=== PATIENT | female | born 1960 | race Caucasian/White ===

== ENCOUNTER 2017-06-24 11:55 | Inpatient (IN) | payer OTHER ==
[~2017-06-24] VITALS: Ht 170.2 cm; Wt 119.5 kg
[~2017-06-24 11:55] MED LIST: COREG25 MG PO; COZAAR50 MG PO; FLONASE ALLERG9.9 ML NS; FUROSEMIDE40 MG PO; GLUCOPHAGE XR500 MG PO; HUMULIN N100 UNIT/1 SUB-Q; NEURONTIN300 MG PO; NOVOLIN 70100 UNITS/ SUB-Q; POTASSIUM CHLO20 ME1 PO
[2017-06-24] MEDS ORDERED: PRAVACHOL40 MG PO (12:35)
[2017-06-24] MEDS ORDERED: ST. JOSEPH ASPI81 M1 PO (12:36)
[2017-06-24] MEDS ORDERED: ZYLOPRIM100 MG PO (12:36)
[2017-06-24] MEDS ORDERED: HUMALOG KW200 UNIT/1 SUB-Q (12:36)
[2017-06-24] MEDS ORDERED: VICTOZA 2-0.6 MG/0.1 SUB-Q (12:37)
[2017-06-24] MEDS ORDERED: TRESIBA FL100 UNIT/1 SUB-Q (12:37)
--- NOTE | 2017-06-24 17:10 | NUR ---
Medications reconciled using medication vials and interview
--- NOTE | 2017-06-24 17:46 | NUR ---
WENT IN ROOM TO GET PT UP TO THE COMMODE TO TRY AND SEE IF SHE COULD VOID. PT WAS UNABLE TP DUE TO BECOMING NAEUSEOUS AND BEGAN VOMITING. NURSE AWARE.
--- NOTE | 2017-06-24 18:32 | NUR ---
pt is sitting up in bed with call light in reach. pt says she is not as nauseous. pt says she still does not feel she needs to void
--- NOTE | 2017-06-24 18:37 | NUR ---
DR LEIVA TO SEE PT. ZOFRAN X1 FOR NAUSEA. NOTHING TO EAT SINCE YESTERDAY. CT POSITIVE FOR CHOLECYSTITIS. NPO NOW. ZOSYN GIVEN. DUE TO VOID.
--- NOTE | 2017-06-24 20:13 | NUR ---
coop with assessment, drowsy, no c/o pain, in room, first liter of 2liter ivf infusing
--- NOTE | 2017-06-25 03:44 | NUR ---
pt resting peacefully, no further c/o pain, continous pulse ox in place, IVF infusing. Pt aware that a UA is needed. Pt NPO for possible am surgery today. scds in place
--- NOTE | 2017-06-25 04:19 | NUR ---
PT UP TO BSC, VIDED 450CC, DARK YELLOW URINE, BACK TO BED, WITH ASSIST. C/O BACK AND ABD PAIN, MEDICATED WITH DILAUID 0.5MG IV
--- NOTE | 2017-06-25 06:00 | NUR ---
NURSE NOTIFIED RE SAMMYP.
--- NOTE | 2017-06-25 06:27 | NUR ---
Pt continues to c/o abd pain, medicated 2x with dilaudid with good pain relief, dry heaving x1,and 10cc clear phlegm. medicated with zofran, effective. No further episodes. IVF infusing w/o problems. Up to bsc with one assist, slight lower legs weakness present, CBG 234 ar 2200 received 6 units insulin plus Levemir. No c/o adverse reaction to IV abx. NPO for possible am surgery today. oral care done by self. Temp 99.6, IS at bedside, encouraged to CDB.
--- NOTE | 2017-06-25 07:00 | NUR ---
BEDSIDE HANDOFF REPORT RECEIVED FROM MEDICAL COST CONSULTANT RN. PT SLEEPING, AT BEDSIDE.
--- NOTE | 2017-06-25 08:00 | NUR ---
PT RESTING IN BED. PT ALERT/ORIENTED. FLUIDS INFUSING AT 125 ML/HR. PT NPO FOR POSSIBLE PROCEDURE. PT BLOOD GLUCOSE 328, GIVEN 12 UNITS OF SS NOVOLOG AND 18 UNITS LEVEMIR. PT LUNG SOUNDS CLEAR, ON ROOM AIR. PT WITH BLE NEUROPATHY, NUMBNESS AT BASELINE, PULSES PALPABLE, NO EDEMA NOTED. PT DENIES NEEDS AT THIS TIME. AT BEDSIDE.
--- NOTE | 2017-06-25 08:26 | NUR ---
PT REQUESTING NAUSEA MEDICATION, GIVEN 4 MG IV ZOFRAN. PT DENIES OTHER NEEDS AT THIS TIME.
--- NOTE | 2017-06-25 08:56 | NUR ---
PT REQUESTING PAIN MEDICATION. GIVEN 0.5 MG IV DILAUDID. PT DENIES OTHER NEEDS AT THIS TIME.
--- NOTE | 2017-06-25 09:45 | NUR ---
Patient is resting in bed right now. Patient states "I would like to get some rest right now." Dr. Jaquez in to see patient at this time.
--- NOTE | 2017-06-25 11:30 | NUR ---
PT RESTING IN BED. PT ON ROOM AIR, O2 SATS 94%, LUNG SOUNDS CLEAR. PT TOLERATING CLEAR LIQUID DIET, DISCUSSED BLOOD SUGAR CONTROL ON CLEAR LIQUIDS. PT DENIES NAUSEA AT THIS TIME. PT BOWEL TONES COTNINUE TO BE HYPOACTIVE. PT WITHOUT EDEMA, PULSES PALPABLE. PT DENIES NEEDS AT THIS TIME.
--- NOTE | 2017-06-25 12:45 | NUR ---
PT RESTING COMFORTABLY IN BED. O2 SATS 92% ON ROOM AIR, RR 24. PT LEFT UNDISTURBED.
--- NOTE | 2017-06-25 14:30 | NUR ---
PT ASSISTED TO BEDSIDE COMMODE TO URINATE. PT SOB WITH ACTIVITY. IV ANCEF INFUSING. MD NOTIFIED OF SOB WITH ACTIVITY, MD TO EVALUATE PT FOR POTENTIAL FLUID OVERLOAD.IV FLUIDS DECREASED TO 75 ML/HR.
--- NOTE | 2017-06-25 16:00 | NUR ---
PT ON ROOM AIR, O2 SATS 94%, PT WITH SOB WITH ACTIVITY. PT RATNG PAIN 2/10 TO ABD, BOWL TONES ACTIVE, DENIES NAUSEA, TOLERATING CLEAR LIQUID DIET. IV FLUIDS INFUSING D5LR AT 125 ML/HR. PT DENIES NEEDS AT THIS TIME.
--- NOTE | 2017-06-25 16:15 | NUR ---
DR. LEIVA NOTIFIED OF PT FEVER. ORDER TO CHANGE PT FROM ANCEF TO ZOSYN 3.375 GM AND TO ADD TYLENOL PO 650 MG Q6H, RBOV.
--- NOTE | 2017-06-25 18:42 | NUR ---
PT ON ROOM AIR, O2 SATS >92%, CONTNINUOUS PULSE OX. PT ALLOWED TO HAVE CLEAR LIQUID DIET, WILL BE NPO AT MIDNIGHT. PT WITH FEVER, MAX TEMP 102.8, GIVEN TYLENOL, ABX CHANGED. PAIN WELL CONTROLLED WITH 0.5 MG IV DILAUDID. PT SBA TO BSC, VOIDING MARGINAL AMOUNTS.
--- NOTE | 2017-06-25 19:26 | NUR ---
SIGNED CONSENT IN CHART. BEDSIDE REPORT GIVEN. PT DENIES NEEDS AT THIS TIME.
--- NOTE | 2017-06-25 20:00 | NUR ---
RECEIVED REPORT AT 1900. FOUND PT IN BED WATCHING TV. PT DENIED PAIN. NO CONCERNS AT THIS TIME.
--- NOTE | 2017-06-25 20:37 | NUR ---
Patient in bed, whiteboard updated, room tidied. Patient reminded to call if they need anything.
--- NOTE | 2017-06-25 22:00 | NUR ---
TEMP IS 100.2, PRN TYLENOL WILL BE GIVEN. ALL OTHER V/S ARE CLEAR, ALL QUADRANTS HAVE HYPOACTIVE BOWEL TONES, ABD IS MILDLY DISTENDED, TENDER TO TOUCH AND FRIM ALL LOBES ARE CLEAR AT THIS TIME., BG WAS 221,PT RECEIVED 6 UNITS OF NOVOLOG AND 36 UNITS OF SCHEDULED LEVEMIR INSULIN.
--- NOTE | 2017-06-26 00:15 | NUR ---
PT IS SLEEPING AT THIS TIME.
--- NOTE | 2017-06-26 00:18 | NUR ---
PATIENT IN BED, NURSE IN ROOM
--- NOTE | 2017-06-26 01:30 | NUR ---
SBP WAS ONLY 86. MD LEIVA TO BE CALLED.
--- NOTE | 2017-06-26 01:40 | NUR ---
MD LEIVA CALLED. GOT ORDERS TO CHECK HER BG (IT WAS 216), THOMAS WAS ALSO ORDERED (INSERTED AT 0200), URINE OUTPUT WAS ONLY 125ML. MD LEIVA SAID TO GIVE HER A 500ML LR BOLUS IF URINE OUTPUT WAS NOT SUFFICIENT, WHICH IT IS NOT. ORDER FOR A 500ML LR BOLUS WILL BE PUT IN AND GIVEN AND THEN BP RETAKEN.
--- NOTE | 2017-06-26 03:41 | NUR ---
BOLUS FINISHED, SBP IS 88, MD LEIVA WAS CALLED. RECEIVED ORDER FOR ANOTHER 500ML LR BOLUS AND CHEM 2 WITH LACTIC ACID LABS NOW. PT STATED THAT SHE FEELS FINE. WILL CALL MD LEIVA FOR REMARKED CHANGEDS AFTER SECOND BOLUS IS DONE. NO MORE URINE OUTPUT SO FAR, TEMP IS 99.6. MD LEIVA IS AWARE OF THAT WELL.
--- NOTE | 2017-06-26 05:53 | NUR ---
SECOND BOLUS WAS DONE AT 0517. SBP WAS 90, URINE OUTPUT SINCE 0200 WAS 50ML, ABD IS VERY DISTENDED AND PT IS MORE PAINFUL. I AM HOLDING PAIN MEDS BECAUSE PT IS STILL HARD TO AROUSE AT TIMES. ALBUMEN IS LOW, CREATENIN HIS HIGH. MD SALES WAS CALLED AND IS AWARE. HE ORDERED ANOTHER LR 500ML BOLUS.
--- NOTE | 2017-06-26 06:42 | NUR ---
PT IS HARD TO AROUSE. PT IS ALERT X4 BUT NOT REALLY ABLE TO STAY AWAKE. WILL CALL MD LEIVA AGAIN.
--- NOTE | 2017-06-26 06:55 | NUR ---
CALLED MD LEIVA AGAIN DUE TO EDEMA AND DIFFICULTY TO AROUSE PT. IV FLUIDS ARE DECREASED TO 85ML/HR, ONE TIME DOSE OF IV LASIX 20MG WAS ALSO ORDERED.
--- NOTE | 2017-06-26 07:00 | NUR ---
BEDSIDE HANDOFF REPORT RECEIVED FROM CHILD CARE WORKER RN. PT SLEEPING IN BED. THOMAS CATH IN PLACE DRAINING FREELY. IV FLUIDS INFUSING AT 85 ML/HR. AT BEDSIDE.
--- NOTE | 2017-06-26 07:40 | NUR ---
PT HYPOTENSIVE OVER NIGHT, HR IN THE 80-90'S, PT TO RECEIVE COREG. OR CHARGE NURSE CALLED, TO SPEAK WITH ANESTHESIA AND WILL CALL BACK WITH ORDER REGARDING COREG.
--- NOTE | 2017-06-26 08:00 | NUR ---
SPOKE WITH DOCTOR SPEARS REGARDING PATIENT'S LOW URINE OUTPUT THROUGH THE NIGHT AND LOW BLOOD PRESSURES. DOCTOR UPDATED ON 500ML BOLUS X3 AND THAT HER URINE OUTPUT REMAINED LOW WITH BOLUS GIVEN. ABDOMEN AND LEGS HAVE GENRALIZED EDEMA, LASIX ORDERED AND GIVEN THIS AM.
--- NOTE | 2017-06-26 08:00 | NUR ---
PT RESTING COMFORTABLY IN BED. PT STATES PAIN 2/10 AT REST, DENIES NEED FOR PAIN MEDICATION. PT ON ROOM AIR, O2 SATS 93%, LUNG SOUNDS CLEAR. PT BOWEL TONES ACTIVE, DENIES NAUSEA, ABD DISTENDED. PT WITH THOMAS CATH IN PLACE, DRAINING FREELY, PT WITH LOW URINE OUTPUT, MD AWARE, RECENTLY RECEIVED IV LASIX, WILL CONTINUE TO MONITOR. IV ZOSYN INFUSING. PT DENIES OTHER NEEDS AT THIS TIME.
--- NOTE | 2017-06-26 08:20 | NUR ---
RECEIVED CALL BACK FROM STEFANI VALENCIA RN. ANESTHESIAORDER TO HOLD COREG THIS AM.
--- NOTE | 2017-06-26 08:53 | NUR ---
PT AWAKE IN BED. DID SURG. WIPE DOWN. EMPTYED GARBAGE. PICKED UP ROOM. AM CARE.
--- NOTE | 2017-06-26 09:45 | NUR ---
PT RESTING COMFORTABLY IN BED. O2 SAT S93% ON ROOM AIR. PER MD REQUEST URINARY COLLECTION DEVICE CHANGED TO UROMETER BAG. IV LR BOLUS INFUSING. PT WITH LOW URINE OUTPUT, MD AWARE. PT DENIES OTHER NEEDS AT THIS TIME.
--- NOTE | 2017-06-26 10:06 | NUR ---
PT SLEEPING IN BED. HELPED NURSE VERONA CHANGE CATH BAG.
--- NOTE | 2017-06-26 10:53 | NUR ---
PT TO OR WITH VIDAL KO. PT SENT WITH ZOSYN, D5LR AND, LR BOLUS INFUSING. WITH PT.
--- NOTE | 2017-06-26 15:03 | NUR ---
06/26/17 Teresa Baron 1445: PT ARRIVED TO CCU AND VENT WAS SET UP, SEE RT NOTES FOR SETTINGS. RESTRAINS PLACED.
--- NOTE | 2017-06-26 15:56 | NUR ---
RECEIVED PT FROM PACU NURSE FACE TO FACE REPORT. ALL QUESTIONS ANSWERED AT THIS TIME. PT REMAIN ON VENT SEE VENT SETTING IN RT NOTES. PT HAS A RASS -3 AT THIS TIME WITHOUT SEDATION RUNNING AT THIS TIME. GUEVARA DRAINING SS FLUID AT THIS TIME, THOMAS DRAINING JESSICA IN COLOR URINE, UMBILLIC DRESSING HAS MOIDERATE DRAINAGE AT THIS TIME, DR LEIVA IS AWARE AND NO NEW ORDERS WITH THIS. SCD'S AND RESTRAINTS IN PLACE.
--- NOTE | 2017-06-26 16:48 | NUR ---
INTRA ABD PRESSER 13 AT THIS TIME.
--- NOTE | 2017-06-26 17:06 | NUR ---
pt awake and following directions at this time, notified Dr. Jaquez and we are to use weaning protocol. Then he calls back and wants to use dipavain at a low dose.
--- NOTE | 2017-06-26 17:25 | NUR ---
Pt received from OR post-cholecystectomy. Lung sounds clear. Heart sounds distant. Pt waking from sedation, intubated, and restrained per MD orders. at bedside.
--- NOTE | 2017-06-26 17:29 | NUR ---
PT CONTIOUES TO BE AWAKE AT THIS TIME, WHEN ASKED IF SHE IS COMFORTABLE AT THIS TIME, SHAKES HER HEAD. WHEN ASKED IF SHE IS COMFORTABLE CAN BE SHAKES HER HEAD YES. CONTIONES TO RIDE THE VENT AT THIS TIME.
--- NOTE | 2017-06-26 17:40 | NUR ---
DR LEIVA STOPED BY NO NEW ORDERS AT THIS TIME. SEE4 CHART FOE MORE VITAL SIGNS.
--- NOTE | 2017-06-26 17:55 | NUR ---
PT EXBUATED AT THIS TIME, PLACED ON 3L VIA NC, WITH SPO2 98-99%. PT ABLE TO TALK EXPLAINED PLAN OF CARE, AND SHE IS FOLLOWING DIRECTIONS. RESTRAINTS REMOVED AT THIS TIME.
--- NOTE | 2017-06-26 18:18 | NUR ---
WORKED WITH PT ON HER IS AND SHE WAS ABLE TO GET IT TO 750 AT THIS TIME.
--- NOTE | 2017-06-26 18:39 | NUR ---
TALKED WITH DR LEIVA REGARDING ABD PRESSERS, NEW ORDERS RECEIVED AND NOW THEY ARE PRN. PT IS HAVING GOOD URINE OUTPUT AT THIS TIME. HOB ELEVATED. PT WATCHING TV AT TIMES. APPEARS TO BE COMFORTABLE.
--- NOTE | 2017-06-26 19:50 | NUR ---
BLADDER PRESSURE 16
--- NOTE | 2017-06-26 21:28 | NUR ---
MIDLINE ABDOMINAL DRESSING HAD APPROX 75CC BROWN LIQUID BUBBLING AND LEAKING OUT UNDERNEATH OPSITE. DR LEIVA CALLED, ORDER GIVEN TO REMOVE OLD DRESSING AND APPLY NEW GAUZE DRESSING.
--- NOTE | 2017-06-26 21:35 | NUR ---
ABD APPLIED OVER UMBILICAL LAP SITE AND STERI-STRIPS, SECURED WITH OP SITE.
--- NOTE | 2017-06-26 21:45 | NUR ---
LINEN AND GOWN CHANGED
--- NOTE | 2017-06-26 22:11 | NUR ---
PATIENT PLACED ON SLEEP, TOLERATING WELL
--- NOTE | 2017-06-26 23:59 | NUR ---
PATIENT ON HOSPITAL CPAP WITH MASK, REQUESTS TO USE HOME CPAP WITH NOSTRIL MASK.
--- NOTE | 2017-06-27 05:12 | NUR ---
PATIENT SITTING UP READING ON 2L VIA NC. NO DISTRESS AND DENIES COMPLAINTS. PAIN WELL CONTROLLED WITH IV DILUADID TWICE DURING THE NIGHT. GUEVARA DRAIN WITH SMALL AMOUNTS OF SEROSANGUINEOUS DRAINAGE DURING THE NIGHT. LARGE AMOUNTS OF SEROUS DRAINAGE FROM UMBILICAL SITE THAT IS COVERED WITH ABD PAD AND OPSITE.
--- NOTE | 2017-06-27 05:44 | NUR ---
LARGE AMOUNT OF SEROUS FLUID EMPTYIED FROM GUEVARA DRAIN THIS AM.
--- NOTE | 2017-06-27 06:09 | NUR ---
PATIENT SITS AT SIDE OF BED WITH 2 PERSON ASSIST. TOLERATED WELL
--- NOTE | 2017-06-27 06:25 | NUR ---
BLADDER PRESSURE 17 @ 0605
--- NOTE | 2017-06-27 07:49 | OR ---
[facility] [address] [place], [place] [address] Signed DATE OF OPERATION: 06/26/2017 SURGEON: William Leiva MD PREOPERATIVE DIAGNOSES: 1. Acute calculous cholecystitis. 2. Congestive cardiomyopathy. 3. Acute, limited renal failure. 4. Morbid obesity. 5. Diabetes mellitus. POSTOPERATIVE DIAGNOSES: 1. Gangrenous cholecystitis with gallbladder perforation (walled off with omentum). 2. Bladder pressure 21 mmHg. PROCEDURES: 1. Laparoscopy with conversion to open cholecystectomy, prolonged, complicated, and difficult. 2. Measurement of bladder pressure, rule out compartment syndrome of abdomen. ANESTHESIA: General endotracheal, William Castro CRNA. ASSISTANTS: Nurse (Cirilo Styles) and Marizol Fall RN. DRAINS: 7-mm Vignesh. INDICATION: This 56-year-old white woman who was admitted through the emergency room on June 24, 2017, with right upper abdominal pain and a CT scan which showed inflammatory changes of the gallbladder and multiple stones. She has numerous medical problems including congestive cardiomyopathy with an ejection fraction between 25% and 30%, significant insulin-dependent diabetes mellitus, and importantly marked morbid obesity. Consultation has been undertaken with Dr. Valverde in optimizing the patient for consideration of operation. Notably, last night, the patient had relative oliguria with increase of her creatinine from 1.62 to 2.02. She was fluid bolus responsive, however. Her lab studies showed Electronically Signed By: WILLIAM LEIVA MD 06/27/17 0749 PATIENT NAME: RAFFI HORNER OPERATIVE REPORT DATE OF : 56 PHYSICIAN: WILLIAM LEIVA MD REPORT #: [id number] REPORT IS CONFIDENTIAL AND NOT TO BE RELEASED WITHOUT AUTHORIZATION [facility] [address] [place], [place] [address] Signed mildly elevated bilirubin of 1.4. Liver enzymes normal. White count still elevated at approximately 13,000 at this time. She has tenderness in the right subcostal area as she has had and is in need of operation to remove the septic focus likely feeling her ongoing problem. She and her understand the risks of laparoscopic cholecystectomy including the need for possible open procedure. The risks of bleeding, infection, bile duct injury, need for open procedure, need for truncated procedure given her underlying numerous medical problems were all reviewed and understood. FINDINGS: Hemodynamically, she did reasonably well through the operation. She had some urine output during the operation. Laparoscopy was performed, anticipating a laparoscopic approach; however, she had an unbelievable amount of intra-abdominal fat related to her omentum and essentially no space within the abdominal cavity to allow for laparoscopic manipulation. This was with full abdominal relaxation. She had intense inflammatory changes of the omentum to the gallbladder. The liver itself was reasonably normal, certainly showing no sign of cirrhotic changes. Conversion to open operation was required, which ultimately showed a gangrenous gallbladder with perforation and localized fluid collection of intensely dark bilious material with stones. She had large stones and small stones within the gallbladder itself. With extreme care, caution, and diligence, ultimately cholecystectomy was performed preserving a normal cystic duct. The cystic duct itself was occluded and cholangiogram was not performed. Given her relative oliguria recently, her tense abdomen and so forth preoperatively, at conclusion of the procedure after the abdomen was closed and when the patient was fully relaxed and was spontaneously ventilating, a bladder pressure was obtained showing a pressure of 21 mmHg. DESCRIPTION OF PROCEDURE: The patient was brought to the operating room, given a general endotracheal anesthetic. She did have somewhat complicated or difficult airway for intubation, according to the brick dropper. Preoperative antibiotic, Zosyn, had been given. Sequential compression device stockings used and so on. The Amezcua catheter was already in place. After satisfactory general endotracheal anesthesia, the abdomen was observed to be essentially like a large beach ball. It was reasonably tense as well. Concern was maintained there may be ascites that had developed. The abdomen was prepared with chlorhexidine solution and draped sterilely. An infraumbilical incision was made and due to the thick abdominal wall pannus, the midline fascia was not incised, but rather the laparoscopic incision moved to above the umbilicus, which allowed for less abdominal fat. The fascia was Electronically Signed By: WILLIAM LEIVA MD 06/27/17 0749 PATIENT NAME: RAFFI HORNER OPERATIVE REPORT DATE OF : 56 PHYSICIAN: WILLIAM LEIVA MD REPORT #: [id number] REPORT IS CONFIDENTIAL AND NOT TO BE RELEASED WITHOUT AUTHORIZATION [address] [address] Signed incised under direct visualization and using an open Tia cannula technique, the abdomen was entered. There was no sign of significant ascites and certainly no decompression of the abdomen and its distended appearance. Confirmation with the brick dropper that she was fully relaxed was affirmed. Using a Tia cannula, pneumoperitoneum was achieved to a level of 14 mmHg of carbon dioxide gas. Intra-abdominal inspection showed some slightly bile-tinged fluid over the dome of the liver with reasonably normal-appearing liver, otherwise. There were intense inflammatory adhesions of omentum to the undersurface of the liver edge. A 12-mm epigastric port was placed, but there was so little room to allow for manipulation and dissection, it simply was impossible to do a laparoscopic cholecystectomy. On that basis, the trocars were removed. The supraumbilical fascial incision reapproximated with interrupted 0 Vicryl suture, and plans made for open procedure. The right subcostal incision was made in the typical way, incising the thick abdominal wall fat, the anterior rectus sheath, rectus muscle, and posterior rectus sheath and its attendant peritoneum. Subsequently, the incision was extended given her significant obesity. Palpation of the right subhepatic space shows very intense inflammatory changes and contiguous omentum to the gallbladder itself. Areas that could be distinguished from the gallbladder and omentum were exploited to allow for dissection of the gallbladder away from the surrounding cocoon of omentum. Upon entry into that space, thick greenish bile and sandlike sludge was noted. Clearly, the gallbladder had already perforated. With further blunt dissection, the omentum could be freed from it showing a necrotic gallbladder with a hole in the midportion essentially. Bookwalter retractor was used to provide optimal exposure. With meticulous care, the gallbladder was freed from the surrounding cocoon of intense inflammatory change with omentum. It occurred to me at that point that she may have had an abdominal compartment syndrome accounting for her recent oliguric situation. In any case, the abdomen was well open at this point. A ring clamp was applied to the apex of the gallbladder and using electrocautery and meticulous care, a plane was developed between the gallbladder and the liver bed. Blunt dissection was additionally used to free the gallbladder towards the infundibulum. Meticulous care was maintained throughout as the inflammatory changes were profound. Ultimately, the infundibulum was well defined and a large stone, probably 5 to 6 cm in size was noted as the dominant stone in the infundibulum. With various manipulations including blunt dissection, minimal amounts of cautery, and Kittner dissection, the infundibulum could be more fully freed from the liver plate. Ultimately, it became most expedient to apply 2 long right angle clamps to the remnant of the infundibulum and transect the gallbladder and explant it from the site for better exposure. At this point, the infundibular remnant was able to be used as a handle and meticulous care taken to dissect the infundibulum down to the cystic duct itself. At the outset of the Electronically Signed By: WILLIAM LEIVA MD 06/27/17 0749 PATIENT NAME: RAFFI HORNER NILES OPERATIVE REPORT DATE OF : 56 PHYSICIAN: WILLIAM LEIVA MD REPORT #: [id number] REPORT IS CONFIDENTIAL AND NOT TO BE RELEASED WITHOUT AUTHORIZATION [facility] [address] [place] [id number] Signed operation, consideration had been made for simply the cholecystostomy; however, a organ does not hold the drain well and cholecystectomy was well indicated obviously. Further dissection was undertaken at the infundibulum down to the cystic duct and ultimately found to be viable. The cystic duct itself was occluded by scar tissue. Three large clips were applied to the cystic duct remnant. The infundibular remnant was excised. Irrigation was then undertaken. There was no untoward bleeding or other problem. I was quite surprised cholecystectomy could actually be done as this was one of the hard gallbladder that I have seen in probably 30 years. Irrigation was undertaken more fully. There was no sign of bleeding, bile leak, liver injury, or other problem. Through a separate stab incision, a 7-mm flat Vignesh drain was placed in the subhepatic space, brought out through the abdominal wall and secured to the skin with 2-0 nylon suture. It was attached to bulb suction later. The omentum was allowed to replace itself to the subhepatic space and plan was made for closure. The posterior sheath and its attended peritoneum were reapproximated with running bidirectional #1 PDS suture. Muscular layer was irrigated, and anterior rectus sheath similarly reapproximated. The subcutaneous tissue was irrigated and skin closed with running subcuticular 3-0 Vicryl. The trocar site incisions were similarly closed with interrupted 3-0 Vicryl. Steri-Strips were applied as was Mepilex silver sponge dressing and an OpSite. Considering the possibility of abdominal compartment syndrome previously, bladder pressure was then performed which showed a peak pressure of 21 mmHg. Technique included installation of 50 mL of sterile saline into the bladder with the usual manometric technique using a 21-gauge needle through the catheter itself. The patient was spontaneously ventilating, but with relatively small tidal volumes of 200 mL and therefore was allowed to remain intubated and taken to the intensive care unit for further management. The operation was exceedingly difficult, prolonged, and so on and lasting four times longer than usual. It was accomplished safely, however. William Leiva MD Electronically Signed By: WILLIAM LEIVA MD 06/27/17 0749 PATIENT NAME: RAFFI HORNER OPERATIVE REPORT DATE OF : 56 PHYSICIAN: WILLIAM LEIVA MD REPORT #: [id number] REPORT IS CONFIDENTIAL AND NOT TO BE RELEASED WITHOUT AUTHORIZATION [facility] [address] [place] [address] Signed /MODL /[id number] cc: MD Kwan Deluna DO Electronically Signed By: WILLIAM LEIVA MD 06/27/17 0749 PATIENT NAME: RAFFI HORNER GONZALES OPERATIVE REPORT DATE OF : 56 PHYSICIAN: WILLIAM LEIVA MD REPORT #: [id number] REPORT IS CONFIDENTIAL AND NOT TO BE RELEASED WITHOUT AUTHORIZATION
--- NOTE | 2017-06-27 08:00 | NUR ---
ASSESSMENT DONE. DRESSING TO ABD X 2 INTACT. WILL CHANGE MID ABD DRESSING LATER TODAY. THOMAS CATH PATENT. IS UNDERSTAND REGARDING PLAN OF CARE FOR DAY.
--- NOTE | 2017-06-27 08:15 | NUR ---
IS VERY TALKATIVE.
--- NOTE | 2017-06-27 08:27 | HP ---
[facility] [address], [place] [address] Signed ADMISSION DATE: 06/24/2017 REASON FOR ADMISSION: Acute cholecystitis, dehydration. HISTORY OF PRESENT ILLNESS: This 56-year-old white woman is a of a former ongoing patient of [facility], Lawrence Horner, and presented to the emergency room earlier in the day, and evaluated by Dr. Sid Bunn for abdominal pain. His evaluation included a CT scan of the abdomen, which showed findings highly suggestive of acute cholecystitis, including thickened gallbladder wall, pericholecystic "streaking," as well as gallstones. Direct admission under my service was recommended. The patient has been evaluated initially at about 12 noon, and has been on the regular gutierrez since about 5 p.m. Unfortunately, no ongoing intravenous fluids were administered upon my presentation to see her. She has had persistent vomiting, but is not vomiting much and she has had some urinary incontinence along the way. Her lab studies were reviewed, which showed an elevated white count of 16,000, hematocrit of 41.6, and platelets 286,000. Chem profile showing an elevated creatinine of 1.69, glucose of 264, calcium of 11.1, bilirubin normal at 0.7. Liver enzymes normal. Her lipase was normal at 39. Urinalysis was not received. PAST MEDICAL HISTORY: Does include diabetes mellitus. Additionally, she is noted to have history of coronary stenting, history of appendectomy, tonsillectomy and adenoidectomy, as well as left knee operation. Additionally, she is known to have diabetes mellitus, congestive heart failure, hypertension, neuropathy, and pericarditis in the past. ALLERGIES: She has allergies to morphine. She was treated with Zosyn antibiotic in the emergency room setting. SOCIAL HISTORY: She lives in [place]. She is to Lawrence Horner, a patient of [facility]. She is considered "disabled." Electronically Signed By: WILLIAM LEIVA MD 06/27/17 0827 PATIENT NAME: RAFFI HORNER HISTORY AND PHYSICAL DATE OF : 56 PHYSICIAN: WILLIAM LEIVA MD REPORT #: [id number] REPORT IS CONFIDENTIAL AND NOT TO BE RELEASED WITHOUT AUTHORIZATION [facility] [address], [place] [address] Signed REVIEW OF SYSTEMS: She denies any shortness of breath, or chest pain. She has had no dysphagia, or dysuria. She does feel that she has a dry mouth. PHYSICAL EXAMINATION: GENERAL: Obese white woman, who is alert, and oriented without signs of delirium. Her is present. HEENT: Mucous membranes are markedly dry. Trachea is midline. She has no hoarseness. NECK: There is no carotid bruit. There is no cervical adenopathy. CHEST: Shows clear lungs bilaterally. No wheeze or rhonchi. HEART: Regular without murmur. ABDOMEN: Markedly obese, and somewhat distended. There is mild tenderness diffusely in the upper abdomen. EXTREMITIES: No clubbing, cyanosis, or edema. She does have sequential compression device stockings in place. LAB STUDIES: Show white count of 16.0, hematocrit 41.6, platelets 286,000, bands 2%. Chem profile abnormal for creatinine of 1.69, glucose 264, calcium 11.1. Liver enzymes normal. Lipase normal at 39. I reviewed the CT scan images, and the detailed report, which shows hyperlucency of the circumference of the gallbladder. The right, and left kidneys are normal and the liver near the gallbladder is normal. ASSESSMENT AND PLAN: The patient definitely has acute calculous cholecystitis, and clinical dehydration. The patient needs fluid resuscitation right now. She will be getting 2 L of lactated Ringer's solution ultimately to have a glucose containing IV. Glucose monitoring will be important and insulin as a sliding scale. She will get intravenous antibiotics, parenteral pain medication to avoid morphine and Percocet given her allergy profile. She ultimately will require cholecystectomy, but at this time fluid resuscitation is most appropriate. This was especially so since she has an elevated creatinine of 1.69. We discussed this in detail. William Leiva MD Electronically Signed By: WILLIAM LEIVA MD 06/27/17 0827 PATIENT NAME: RAFFI HORNER HISTORY AND PHYSICAL DATE OF : 56 PHYSICIAN: WILLIAM LEIVA MD REPORT #: [id number] REPORT IS CONFIDENTIAL AND NOT TO BE RELEASED WITHOUT AUTHORIZATION [address] [place], [place] [address] Signed YAW/SEFERINO /[id number] cc: MD Kwan Deluna DO Electronically Signed By: WILLIAM LEIVA MD 06/27/17 0827 PATIENT NAME: RAFFI HORNER HISTORY AND PHYSICAL DATE OF : 56 PHYSICIAN: WILLIAM LEIVA MD REPORT #: [id number] REPORT IS CONFIDENTIAL AND NOT TO BE RELEASED WITHOUT AUTHORIZATION
--- NOTE | 2017-06-27 08:30 | NUR ---
DILAUDID 0.5 MG IV GIVEN FOR C/O INCISIONAL PAIN. IS AT BEDSIDE.
--- NOTE | 2017-06-27 09:36 | NUR ---
up to chair WITH HELP OF PHYS THERAPY.
--- NOTE | 2017-06-27 11:14 | NUR ---
PO MEDS GIVEN. NORCO 2 GIVEN FOR PAIN. NABILS NAUSEA.
--- NOTE | 2017-06-27 15:45 | NUR ---
TO BR TO VOID 550 ML OF CLEAR YELLOW URINE
--- NOTE | 2017-06-27 15:50 | NUR ---
REPORT TO MEDICAL FLOOR.
--- NOTE | 2017-06-27 16:00 | NUR ---
PATIENT TO MED/SURG REPORT FROM [facility]. VS STABLE. PATIENT SITTING UP IN RECLINER. FULL BODY ASSESMENT DONE. NO COMPLAINTS OF PAIN AT THIS TIME. DINNER ORDERED. AT BEDSIDE. DSG INTACT TO ABDOMEN.
--- NOTE | 2017-06-27 16:10 | NUR ---
TO MEDICAL FLOOR VIA CHAIR.
--- NOTE | 2017-06-27 18:07 | NUR ---
PT IS SITTING IN CHAIR WITH FEET ELEVATED. CALL LIGHT IN REACH. PT IS ON THE PHONE.
--- NOTE | 2017-06-27 19:25 | NUR ---
BEDSIDE SHIFT REPORT RECEIVED FROM VIDAL NIEVES. PT IS RESTING IN BED, MULTIPLE VISITORS AT BEDSIDE. IV PATENT INFUSING WNL. PT DENIES NEEDS AT THIS TIME, CALL LIGHT IS WITHIN REACH. WILL CONTINUE TO MONITOR.
--- NOTE | 2017-06-27 21:40 | NUR ---
ASSESSMENT COMPLETED. PT IS ALERT/ORIENTED. UP TO BATHROOM WITH SBA AND FWW, VOIDED AND THEN RETURNED TO BED. AFTER AMBULATING PT STATED THAT PAIN INCREASED FROM 2/10 TO 4/10 AND REQUESTS PAIN MEDICATION, PRN NORCO ADMINISTERED. LUNGS CLEAR, RA, PT HAS CPAP FOR HS. HR REGULAR. BOWEL TONES ACTIVE, PT REPORTS PASSING FLATUS. GUEVARA TO RLQ DRAINING SEROSANGUINOUS FLUID, MEPILEX AROUND SITE. SURGUCAL SITE COVERED WITH ABD. SMALL AMOUNT OF SHADOWING PRESENT ON BOTH DRESSINGS. SCD'S IN PLACE. IV PATENT, INFUSING WNL. CB, 25 UNITS SLIDING SCALE AND 40 UNITS LEVEMIR ADMINISTERED. PT'S AT BEDSIDE. CALL LIGHT IS WITHIN REACH, WILL CONTINUE TO MONITOR.
--- NOTE | 2017-06-27 23:15 | NUR ---
CHECKED IN ON PT. PT STATES HER PAIN HAS IMPROVED TO 1/10. SHE DENIES NEEDS AT THIS TIME, CONTINUES TO WATCH TV IN BED. CALL LIGHT IS WITHIN REACH, WILL CONTINUE TO MONITOR.
--- NOTE | 2017-06-28 01:30 | NUR ---
PT AWAKE WATCHING TV. CB, 15 UNITS SLIDING SCALE ADMINISTERED. UP TO BATHROOM WITH SBA AND FWW, VOIDED AND THEN RETURNED TO BED. PT DENIES FURTHER REQUESTS AT THIS TIME. WILL CONTINUE TO MONITOR.
--- NOTE | 2017-06-28 04:05 | NUR ---
ASSESSMENT COMPLETED. NO CHANGES FROM PREVIOUS ASSESSMENT. PT RESTING NOW, PLACED HOME CPAP. DENIES FURTHER REQUESTS.
--- NOTE | 2017-06-28 05:25 | NUR ---
PT SLEPT OFF AND ON DURING SHIFT. PAIN WELL CONTROLLED WITH PRN NORCO. ALERT/ORIENTED. LUNGS CLEAR, RA, HOME CPAP AT HS, PT USES I.S. INDEPENDENTLY. HR REGULAR. BOWEL TONES ACTIVE, (+) FLATUS, NO NAUSEA. UP WITH SBA AND FWW TO BATHROOM, UO QS. CBG CHECKS, SS, LEVEMIR. IV PATENT, SL EXCEPT IV ABX: ZOSYN. DRESSINGS TO SURGICAL SITE AND GUEVARA SITE HAVE SMALL AMOUNT OF SHADOWING, OTHERWISE ARE DRY AND INTACT. GUEVARA DRAINING MINIMAL SEROSANGUINOUS FLUID. PT'S AT BEDSIDE. POSSIBLE D/C TODAY.
--- NOTE | 2017-06-28 06:45 | NUR ---
PT HAS NOT HAD URINE OUTPUT FOR LAST 2 HOURS, PT IS SLEEPY AND DOESN'T FEEL LIKE SHE NEEDS TO USE THE BATHROOM AT THIS TIME. DR. LEIVA NOTIFIED, WILL CONTINUE TO MONITOR FOR NOW.
--- NOTE | 2017-06-28 07:30 | NUR ---
ENCOURAGED PATIENT TO GET UP TO BATHROOM, VOIDED 300 ML OF URINE. AMBULATED IN HALLS, DID ONE LAP. PATIENT STATES " I AM CONCERNED ABOUT HOW MUCH FLUID IS ON MY ABDOMEN." BOWEL TONES ACTIVE. CRACKLES IN BASES. NOTIFIED DR. SPEARS VERBALLY OF PATIENT CONCERNS. NO NEW ORDERS AT THIS TIME.
--- NOTE | 2017-06-28 12:30 | NUR ---
PATIENT UP AMBULATED TO NURSES STATION AND BACK TO BED. INCREASED URINE OUTPUT SINCE IV LASIX. PATIENT NEW ORDERS REVIEWED. VS STABLE. PATIENT STATES " I AM FEELING REALLY TIRED TODAY AND JUST WANNA LAY HER AND WATCH FOOTBALL ON TV." PATIENT ENCOURAGED TO STAY AWAKE AND BE UP IN RECLINER.
--- NOTE | 2017-06-28 15:13 | NUR ---
PATIENT AMBULATED IN HALLS WITH PHYSICAL THERAPY, NEEDED ENCOURAGEDMENT TO GET UP AND OUT OF BED. PATIENT COMPLAINED OF FEELING TIRED AND STATED " ITS PROBABLY MY BLOOD SUGAR" CHECKED CBG 222, THEN PATIENT STATED " ITS PROBABLY MY BREATHING?" CHECKED 02 SATURATION 95% RA. PATIENT THEN STATED " IT'S MY BACK THAT'S KEEPING ME IN BED". AGREED WITH PATIENT THAT BED MAY NOT BE COMFORTABLE HOME SET UP, AND TOLD PATIENT GETTING UP OUT OF BED MAY HELP WITH BACK PAIN, OFFERED HEAT PAD AND PAIN PILL, PATIENT REFUSED STATING " THE HOT PACK WON'T HELP AND THE PAIN PILL WITH MAKE ME SLEEP".
--- NOTE | 2017-06-28 17:53 | NUR ---
PATIENT UP AMBULATING IN HALLS THROUGHOUT DAY, NEW ORDERS FOR INCREASED IV LASIX, GOOD URINE OUTPUT WITH MEDICAITON. CRACKLES IN LUNGS, DR. SPEARS REPORTED CHF. NO NEW DRAINAGE TO DSG TO ABDOMEN DRY AND INTACT. GUEVARA HAD SCANT AMOUNT OF FLUID THROUGHOUT DAY. VS STABLE. PROVIDED PATIENT WITH ENCOURAGEMENT THROUGHOUT DAY.
--- NOTE | 2017-06-28 18:23 | NUR ---
PT IS SITTING UP IN BED VISITING WITH FAMILY.
--- NOTE | 2017-06-28 19:20 | NUR ---
PATIENT RELAXING IN BED. AT BEDSIDE. GETTING REPORT FROM DAYSHIFT.
--- NOTE | 2017-06-28 20:00 | NUR ---
PATIENT RESTING IN HER BED WITH AT BEDSIDE BOTH WATCHING TV, PATIENT UP TO THE BATHROOM WITH WALKER AND STANDBY ASSIST. ABD DRESSING IN PLACE, GUEVARA DRAIN, IS DRAINING MINIMAL SEROUS FLUID. IV PATENT AND RUNNING.
--- NOTE | 2017-06-28 22:00 | NUR ---
GETTING PATIENT READY FOR BED. BLOOD SUGAR WAS 110, NO NOVOLOG, 50 OF SQ LEVEMIR. 2 NORCO FOR PAIN OF 3/10.
--- NOTE | 2017-06-29 | NUR ---
PATIENT RESTING QUIETLY IN BED, EYES CLOSED, RESPIRATIONS ARE REGULAR AND EVEN.
--- NOTE | 2017-06-29 02:15 | NUR ---
PATIENT UP TO THE BATHROOM VOIDED 800mls AND THEN DECIDED TO SIT UP IN THE CHAIR FOR AWHILE.
--- NOTE | 2017-06-29 04:00 | NUR ---
PATIENT CONTINUES TO BE RESTING IN THE RECLINER. EYES CLOSED, RESPIRATIONS EVEN AND UNLABORED.
--- NOTE | 2017-06-29 06:40 | NUR ---
PATIENT HAS A SL IN EACH FOREARM WHICH ARE BOTH PATENT. PATIENT SLEPT A FEW HOURS WITH HIS CPAP, BUT THEN GOT UP TO THE SIDE OF THE BED AND HAS STAYED UP ON HIS TABLET A GOOD PART OF THE NIGHT. PATIENT HAS BID DRESSING CHANGES. DRESSING WAS CHANGED LAST NIGHT AND REPACKED WITH SALINE INFUSED KERLIX, COVERED WITH DRY 4X4'S, AND A DRY ABD PAD. ABD BINDER PLACED BACK OVER DRESSING DO NOT USE TAPE, IT IRRITATES HIS ABD SKIN VERY BAD.
--- NOTE | 2017-06-29 08:12 | NUR ---
PATIENT IN CHAIR RESTING. WHITEBOARD UPDATED, ROOM TIDIED. WILL RECHECK PATIENT AFTER BREAKFAST.
--- NOTE | 2017-06-29 08:30 | NUR ---
CALL TO DR. SPEARS, NOTIFIED OF CBG OF 77. NEW ORDERS TO HOLD 10 UNITS MAINTENANCE THAT WAS ORDERED IN CONJUCTION WITH SLIDING SCALE. ALSO DECREASED LEVEMIR TO 40 UNITS. PATIENT ATE 90% OF MEAL, AND REPORTS NO SYMPTOMS OF FEELING LIKE BLOOD SUGAR IS LOW.
--- NOTE | 2017-06-29 09:00 | NUR ---
PATIENT BACK TO BED BY BUS MECHANIC, DISCUSSED WITH PATIENT IMPORTANCE OF BEING UP AND OUT OF BED THROUGHOUT DAY. PLAN TO AMBULATE IN HALLS TODAY, PATIENT APPEARS APPREHENSIVE, COMPLAINS OF LOWER BACK HURTING STATES " CHRONIC PROBLEM AT HOME, AND PREVENTS ME FROM WALKING". ALSO STATED " PHYSICAL THEARPY TOLD ME I DIDN'T HAVE TO WALK TODAY BUT TOMORROW". DISCUSSED WITH PATIENT IMPORTANCE OF AMBULATING IN HALLS EVEN IF SHORT DISTANCES. PATIENT AGREED TO WALK SHORT DISTANCE THIS MORNING AFTER HAIR IS WASHED. CNAS SET PATIENT UP WITH BASIN TO WASH HAIR IN AND PROVIDED SHAMPOO, CLEANSING HAIR.
--- NOTE | 2017-06-29 09:47 | NUR ---
PATIENT STATES SHE DOES NOT WANT TO DO ORAL CARE UNTIL SHE GETS UP TO GO TO THE BATHROOM NEXT.
--- NOTE | 2017-06-29 11:24 | NUR ---
PATIENT IN CHAIR RESTING. DOES NOT NEED ANYTHING AT THIS TIME
--- NOTE | 2017-06-29 14:11 | NUR ---
PATIENT UP AMBULATING IN HALLS, TOLERATING WELL. NOTED BLOOD PRESSURE ON LOW SIDE 90/52, NO COMPLAINTS OF DIZZINESS. STEADY ON FEET. REPLACED WALKER WITH ANOTHER ONE THAT SHE SAYS "IS MORE STURDY AND DOESN'T VEER OFF THE ROAD". BACK IN ROOM RESTING IN RECLINER. PAIN WELL CONTROLLED.
--- NOTE | 2017-06-29 14:30 | NUR ---
RECHECKED BLOOD PRESSURE, IMPROVED. NO COMPLAINTS OF DIZZINESS. UP AMBULATING IN HALLS. GUEVARA DRAIN REMOVED BY DR. LEIVA. INCSION C/D/I, NO REDNESS. DISCUSSED INSCION SITE CARE WITH FAMILY. PATIENT VERBALIZED UNDERSTANDING.
--- NOTE | 2017-06-29 17:00 | NUR ---
BLOOD SUGAR REQUIRES NO INSULIN COVERAGE. DISCUSSED WITH AND PATIENT S/S OF LOW BLOOD SUGARS AND IMPORTANCE OF EATING SNACKS WITH PROTEIN. PATIENT STATES " I GET GROUCHY, SWEATY, AND TIRED WHEN MY BLOOD SUGARS ARE LOW, I CAN REALLY FEEL IT AT 50." PATIENT ALSO VERBALIZED UNDERSTANDING. BOTH PATIENT AND FEEL COMFORTABLE WITH DM MANAGEMENT, HAVE NO CONCERNS OR QUESTIONS WITH ADMINISTERING INSULIN.
--- NOTE | 2017-06-29 19:20 | NUR ---
GETTING DAY SHIFT REPORT PATIENT SITTING UP WATCHING TV WITH .
--- NOTE | 2017-06-29 20:00 | NUR ---
PATIENT SITTING UP IN CHAIR WATCHING TV WITH .
--- NOTE | 2017-06-29 22:00 | NUR ---
PATIENT NOW RESTING IN BED, BUT STILL WATCHING TV WITH .
--- NOTE | 2017-06-30 | NUR ---
PATIENT RESTING QUIETLY, EYES CLOSED, RESPIRATIONS EVEN, RR=16.
--- NOTE | 2017-06-30 02:30 | NUR ---
PATIENT IS BACK UP SLEEPING IN THE RECLINER. BLOOD SUGAR WAS 95. PATIENT IS GOING TO EAT A LITTLE MORE PEANUT BUTTER AND GO BACK TO SLEEP.
--- NOTE | 2017-06-30 04:40 | NUR ---
PATIENT HAS SLEPT MOST OF THE NIGHT IN THE RECLINER IT IS NOT HARD ON HER BACK THE BED. IV SL IS PATENT. DRESSINGS ARE OFF AND GUEVARA WAS TAKEN OUT ON DAYSHIFT. INCISIONS STILL HAVE DRY CRUSTY STERI-STRIPS IN PLACE. VS HAVE BEEN OK. PATIENT HOPING TO GO HOME TODAY.
--- NOTE | 2017-06-30 07:30 | NUR ---
PATIENT SITTING UP IN CHAIR LEGS ELEVATED AND EYES CLOSED. PICKED UP ROOM. CALL BUTTON IN REACH. NO OTHER NEEDS AT THIS TIME.
--- NOTE | 2017-06-30 07:37 | NUR ---
BEDSIDE REPORT FROM MARCO A DRAKE. PT SITTING UP IN RECLINER, PT EYES CLOSED RR EVEN 18 BPM, APPEARS DROWSY, NO DISTRESS NOTED. REPORT FROM MARCO A DRAKE IS THAT PT REPORTED THE BED UNCOMFORTABLE LAST NIGHT AND HAD TROUBLE SLEEPING
--- NOTE | 2017-06-30 07:48 | NUR ---
PT REPORTS HAVING ABD PAIN BUT DENIES NEED FOR PAIN MEDICATIONS AT THIS TIME
--- NOTE | 2017-06-30 08:50 | NUR ---
PATIENT SITTING UP IN CHAIR. WASHED HANDS AND FACE WITH WASH CLOTH. PATIENT REFUSED BATH AT THIS TIME. CALL BUTTON IN REACH. NO OTHER NEEDS AT THIS TIME.
--- NOTE | 2017-06-30 09:26 | NUR ---
PT SITTING UP IN CHAIR EYES CLOSED ALERT TO RN WHEN AT CHAIR SIDE. PT REPORTS THAT SHE IS A NIGHT OWL, AND SHE USUALLY DOES NOT EAT UNTIL LATER IN THE MORNING AROUND 1100.
--- NOTE | 2017-06-30 10:13 | NUR ---
PATIENT IN CHAIR FROM BATHROOM WITH ONE PERSON ASSIST. PATIENT IN 6 OUT OF 10 PAIN. RN NOTIFIED. ICE PACK ON LEFT SHOULDER. FRESH ICE WATER GIVEN. ORAL CARE DONE. CALL BUTTON IN REACH. NO OTHER NEEDS AT THIS TIME.
--- NOTE | 2017-06-30 11:37 | NUR ---
One person assist with fww to bathroom. Asked patient to walk in hallway. Patient refused. States she's nuasiated and would like to eat a cracker. Patient back to be. Patient refused her SCD's. Had Patient us her I.S while chief dispatcher service in room for low grade fever of 99.1. RN notified.
--- NOTE | 2017-06-30 11:37 | NUR ---
PT REFUSES TO GET OUT OF BED AND WALK. REPORTS BACK HURTS RIGHT NOW. AND PAIN MEDICATION DOESNT HELP. SHE ALSO IS REFUSING SCDS. PT GIVEN EDUCATIONS ON RISK FOR PNEUMONIA, DVT, AND CONSTIPATION.
--- NOTE | 2017-06-30 12:22 | NUR ---
PT UP TO BATHROOM AT THIS TIME. PT SAID "I WILL COMPROMISE, WHEN THE PROPERTY INSPECTOR LEAVES I WILL WALK TWO DOORS DOWN THE [place], BUT THAT IS IT."
--- NOTE | 2017-06-30 13:20 | NUR ---
PATIENT AMBULATED IN THE HALLWAY WITH STANDBY ASSIST WITH FWW. PATIENT WOULD ONLY WALK PASS TWO ROOMS AND BACK TO BED. CALL BUTTON IN REACH. FRESH ICE WATER GIVEN. NO OTHER NEEDS AT THIS TIME.
--- NOTE | 2017-06-30 13:28 | NUR ---
IN TO PT ROOM TO ASSESS IF PT NEEDS PAIN MEDICATION AT THIS TIME. PT REPORTS SHE IS GOING TO GO FOR A WALK NOW, "GOING TWO DOORS DOWN AND BACK." PT SAID THAT SHE WOULD LIKE PAIN MEDICATION WHEN SHE IS DONE
--- NOTE | 2017-06-30 13:36 | NUR ---
PT BACK TO BED AFTER SHORT WALK. SHE REPORTS SHE IS WILLING TO TAKE ANOTHER WALK JUST BEFORE DINNER AND THEN ONCE MORE RIGHT BEFORE BED TIME. PT REFUSES TO WEAR SCDS
--- NOTE | 2017-06-30 13:40 | NUR ---
PATIENT BACK IN BED WITH EYES CLOSED.
[2017-06-30] MEDS ORDERED: HYDROCODON-ACE1 EA10 PO (15:06)
--- NOTE | 2017-06-30 15:46 | NUR ---
I.V. SITE REMOVED AT THIS TIME. DISCUSSED WITH PT NEED TO DRINK PLENTY OF WATER AND WALK OFTEN AT HOME. I.V. SITE REMOVED WNL, TIP INTACT
--- NOTE | 2017-06-30 15:59 | NUR ---
PT REPORTS SHE WANTS HER TO ASSIST HER WITH DRESSING, RATHER THAN STAFF
--- NOTE | 2017-06-30 16:15 | NUR ---
PT AND IN ROOM GIVEN DISCHARGE PACKET, WITH INSTRUCTION TO ACTIVITY RESTRICTIONS, TO BE SURE AND WALK FREQUENT AND DRINK PLENTY OF WATER. DISCUSSED MEDICATIONS LAST DOSE NEXT DOSE. SIGNS AND SYMPTOMS TO SEEK MEDICAL ATTENTION, SEPERATION OF INCISION, DRAINAGE, REDNESS, SWELLING. NO BATH TUBS/ HOT TUBS/ SWIMMING POOLS. OK TO SHOWER. PT AND VERBALIZE UNDERSTANDING, NO QUESTIONS FURTHER.
--- NOTE | 2017-06-30 16:19 | NUR ---
PATIENT DRESSED IN STREET CLOTHS WAITING TO GO HOME. NO NEEDS AT THIS TIME.
--- NOTE | 2017-07-01 07:05 | NUR ---
PT WAS LAYING IN BED WITH HER BY HER SIDE. SHE SHARED THAT I JUST MISSED HER TRANSPORT MEDIC-HE "FINALLY" CAME TO VISIT HER IN HER WORDS. SHE MENTIONED THAT SHE WAS FEELING MUCH BETTER AND THAT SHE HOPES SHE CAN BE DC'D. 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 EXTENDED A BLESSING, THEY BOTH THANKED ME FOR COMING IN
--- NOTE | 2017-07-03 09:32 | DS ---
[facility] [address] [facility] [place] [address] Signed ADMISSION DATE: 06/24/2017 DISCHARGE DATE: 06/30/2017 REASON FOR ADMISSION: This 56-year-old white woman, who is the of a former patient of mine, Lawrence Horner, and presents to the emergency room earlier in the day, evaluated by Dr. Bunn with abdominal pain. Evaluation included a CT scan of the abdomen which showed findings suggestive of acute cholecystitis including a thickened gallbladder wall, pericholecystic streaking as well as gallstones. She was directly admitted to my service for further evaluation and care. ADDITIONAL PAST MEDICAL HISTORY: Does include diabetes mellitus as well as history of coronary stenting, appendectomy, tonsillectomy, adenoidectomy, left knee operation, and congestive cardiomyopathy. As it turns out her ejection fraction on echo has been variably reported between 25% and 30%. She is admitted for further evaluation and care. PERTINENT PHYSICAL EXAMINATION: GENERAL: At time of admission showed an obese woman, who is alert without sign of delirium. was present. ORAL: Mucous membranes markedly dry. NECK: Trachea midline. CHEST: Clear. HEART: Regular without murmur. No carotid bruit. ABDOMEN: Markedly obese, somewhat distended. Mild tenderness diffusely in the upper abdomen. EXTREMITIES: There is no cyanosis, clubbing, or edema. LABORATORY DATA: White count was 16,000, hematocrit 41.6, platelets 286,000, bands 2%. Chem profile abnormal for creatinine of 1.69, glucose 264, calcium 11.1. Liver enzymes normal. Lipase normal at 39. CT scan showed hyperlucent circumference of the gallbladder. Right and left kidneys are normal. Liver near the gallbladder was normal. HOSPITAL COURSE: She was clearly identified as having acute calculous cholecystitis with clinical dehydration. Fluid resuscitation was undertaken and medical consultation was undertaken on the basis of her prior ischemic cardiomyopathy. Broad-spectrum antibiotics were administered and her situation optimized as much as possible. Anesthesia consultation was undertaken as well, as she would certainly need to Electronically Signed By: WILLIAM LEIVA MD 07/03/17 0932 PATIENT NAME: RAFFI HORNER DISCHARGE SUMMARY DATE OF : 56 PHYSICIAN: WILLIAM LEIVA MD REPORT #: [id number] REPORT IS CONFIDENTIAL AND NOT TO BE RELEASED WITHOUT AUTHORIZATION [facility] [address] [place], [place] [address] Signed proceed to cholecystectomy when medically stabilized. This was all ultimately found to be the case; however, the night prior to her planned operation, she had decreased blood pressure to 88 systolic with a pulse of 84. She had low urine output as well, requiring additional fluid bolus. She was thought to have significant third-space losses. She was taken to the operation on June 26, 2017. Laparoscopic cholecystectomy was hoped; however, her profound obesity and intensity of inflammatory changes in the right subhepatic space precluded any notion of a laparoscopic cholecystectomy. Conversion to open operation was accomplished. She was found to have gangrenous cholecystitis with perforation. The operation was prolonged, complicated, and difficult as might be imagined. The cystic duct was completely occluded and cholangiogram was not performed. A drain was placed. At conclusion of procedure, a bladder pressure was obtained to assess that she did not have abdominal compartment syndrome. That pressure was noted to be 21 mmHg. She was taken back to the intensive care unit, intubated, and over the next few hours was able to be extubated. The drain was placed showed no evidence of bile leak or other problems. She remained in the intensive care unit for about 2 days and had marked improvement of her hemodynamics once the organ had been removed. Broad-spectrum antibiotics were maintained. Diuresis was undertaken by this point, as she was recovering her capillary leak syndrome. By time of discharge, she is ambulating well. The drain that had been placed has been removed. The incision is healing well and she is doing remarkably much better. DISCHARGE DIAGNOSES: 1. Acute gangrenous cholecystitis with perforation, status post laparoscopic with conversion to open cholecystectomy, prolonged, complicated, difficult. 2. Ischemic cardiomyopathy, ejection fraction 25%. 3. Obesity. 4. Diabetes mellitus. 5. 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 6. Obstructive sleep apnea. FOLLOWUP PLAN: She is to return to see me in approximately a month. She will maintain her usual insulin regimen and other medications. DISCHARGE MEDICATIONS: Will include: Electronically Signed By: WILLIAM LEIVA MD 07/03/17 0932 PATIENT NAME: RAFFI HORNER DISCHARGE SUMMARY DATE OF : 56 PHYSICIAN: WILLIAM LEIVA MD REPORT #: [id number] REPORT IS CONFIDENTIAL AND NOT TO BE RELEASED WITHOUT AUTHORIZATION [address] [address] Signed 1. [place] 5/325, 1 to 2 p.o. q.4 hours p.r.n. pain, #30. 2. Coreg 25 mg p.o. b.i.d. 3. Cozaar 1 tablet p.o. daily, 50 mg. 4. Gabapentin (Neurontin) 300 mg p.o. q.a.m. 5. Metformin XR 500 mg p.o. b.i.d. 6. Lasix 40 mg p.o. daily. 7. Pravastatin (Pravachol) 40 mg p.o. q.h.s. 8. Allopurinol 100 mg p.o. daily. 9. Aspirin 81 mg p.o. daily. 10. Insulin lispro Humalog KwikPen 200 units/mL, 1 unit subcutaneous t.i.d. p.r.n. 11. Victoza 2-pack 0.6 mg/0.1 pen injection, 1.8 mg subcutaneous daily. 12. Insulin Tresiba FlexTouch 100 units/mL, 78 units subcutaneous daily. FOLLOWUP PLAN: She will return to see me in approximately a month. MD YAW Myers/SEFERINO /[id number] cc: MD Comfort Sanchez MD Arian Kargar, DO Electronically Signed By: WILLIAM LEIVA MD 07/03/17 0932 PATIENT NAME: RAFFI HORNER DISCHARGE SUMMARY DATE OF : 56 PHYSICIAN: WILLIAM LEIVA MD REPORT #: [id number] REPORT IS CONFIDENTIAL AND NOT TO BE RELEASED WITHOUT AUTHORIZATION
== END 2017-06-30 16:28 | disposition home or self-care (01) | DRG 414 ==
LOC: ED 11:55 → MS 11:56 → CCU 06-26 12:30 → MS 06-27 16:10
PROVIDERS: ADMIT Surgery
PROC: 0FJ44ZZ Inspection of Gallbladder, Percutaneous Endoscopic Approach (ICD-10-PCS; principal; 2017-06-26 12:00)
PROC: 0FT40ZZ Resection of Gallbladder, Open Approach (ICD-10-PCS; principal; 2017-06-26 12:00)
DX: K81.0 Acute cholecystitis (principal); K82.2 Perforation of gallbladder; J90 Pleural effusion, not elsewhere classified; N17.9 Acute kidney failure, unspecified; I13.0 Hypertensive heart and chronic kidney disease with heart failure and stage 1 through stage 4 chronic kidney disease, or unspecified chronic kidney disease; I50.22 Chronic systolic (congestive) heart failure; I25.5 Ischemic cardiomyopathy; E66.01 Morbid (severe) obesity due to excess calories; E11.65 Type 2 diabetes mellitus with hyperglycemia; E86.0 Dehydration; I25.10 Atherosclerotic heart disease of native coronary artery without angina pectoris; E11.40 Type 2 diabetes mellitus with diabetic neuropathy, unspecified; G47.33 Obstructive sleep apnea (adult) (pediatric); N18.3 Chronic kidney disease, stage 3 (moderate); Z95.5 Presence of coronary angioplasty implant and graft; Z79.4 Long term (current) use of insulin; Z88.5 Allergy status to narcotic agent; Z68.36 Body mass index [BMI] 36.0-36.9, adult
CPT/HCPCS: 00790; 31720; 36415; 36600; 71010; 74177; 74300; 80048; 80053; 81001; 82247; 82465; 82570; 82803; 83605; 83615; 83690; 83735; 83880; 84100; 84300; 84478; 84540; 84550; 85025; 94002; 94660; 94760; 96361; 96374; 96375; 97110; 97116; 97162; 99285; J0330; J0690; J1100; J1170; J1644; J1720; J1885; J2250; J2370; J2405; J2543; J2550; J2704; J2765; J3010; J3475; J7030; J7040; J7120; Q9967

== ENCOUNTER 2017-08-28 08:01 | Emergency (ER) | payer OTHER ==
[~2017-08-28] VITALS: Ht 162.6 cm; Wt 106.6 kg
[~2017-08-28 08:01] MED LIST changes: +HUMALOG KW200 UNIT/1 SUB-Q; +HYDROCODON-ACE1 EA10 PO; +PRAVACHOL40 MG PO; +ST. JOSEPH ASPI81 M1 PO; +TRESIBA FL100 UNIT/1 SUB-Q; +VICTOZA 2-0.6 MG/0.1 SUB-Q; +ZYLOPRIM100 MG PO
[2017-08-28] MEDS ORDERED: ROBAXIN-750750 MG PO (08:10)
--- OUTSIDE RECORDS SUMMARY | 2017-08-28 08:46 | XMS | Encounter Summary ---
Demographics + + + | Address | [address] | | | [place] [address] | + + + | Home Phone | | + + + | Preferred Language | Unknown | + + + | Marital Status | | + + + | Jew Affiliation | BAP | + + + | Race | White | + + + | Ethnic Group | Not or | + + + Author + + + | Author | [facility] | + + + | Organization | [facility] | + + + | Address | Unknown | + + + | Phone | Unavailable | + + + Support +------+ + + + + | Name | Relationship | Address | Phone | +------+ + + + + ECON | [address] | | [place], [place] [address] | +------+ + + + + Care Team Providers + +------+-------+ | Care Rf Engineer Name | Role | Phone | + +------+-------+ | Dilia Fine MD | PCP | tel | + +------+-------+ Reason for Referral Consultation (Routine) + +--------+ + + + + | Status | Reason | Specialty | Diagnoses / | Referred By | Referred To | | | | | Procedures | Contact | Contact | + +--------+ + + + + | New Request | | | Diagnoses | Smita, | | | | | | Chronic | Bogdan Epperson, | | | | | | pain | [address] | | | | | | syndrome | [address] | | | | | | Other | [place], | | | | | | idiopathic | [place] | | | | | | scoliosis, | [address] | | | | | | lumbar | Phone: | | | | | | region | [phone] | | | | | | Myofascial | Fax: | | | | | | pain | [phone] | | | | | | Procedures | | | | | | | CONSULT TO | | | | | | | PAIN | | | | | | | MANAGEMENT | | | + +--------+ + + + + Physical Therapy (Routine) + +--------+ + + + + | Status | Reason | Specialty | Diagnoses / | Referred By | Referred To | | | | | Procedures | Contact | Contact | + +--------+ + + + + | New Request | | Physical | Diagnoses | Smita, | | | | | Therapy | Chronic | Bogdan Epperson, | | | | | | pain | [address] | | | | | | syndrome | [address] | | | | | | Other | [place], | | | | | | idiopathic | [place] | | | | | | scoliosis, | [address] | | | | | | lumbar | Phone: | | | | | | region | [phone] | | | | | | Myofascial | Fax: | | | | | | pain | [phone] | | | | | | Procedures | | | | | | | PHYSICAL | | | | | | | THERAPY | | | | | | | REFERRAL | | | + +--------+ + + + + Reason for Visit + + + | Reason | Comments | + + + | New patient | | | consultation | | + + + Consultation (Routine) +--------+--------+ + + + + | Status | Reason | Specialty | Diagnoses / | Referred By | Referred To | | | | | Procedures | Contact | Contact | +--------+--------+ + + + + | Closed | | Spine | Diagnoses | Sucharda, | Smtia, | | | | | Cervicalgia | JOSE EDUARDO Gaytan | Bogdan Epperson PA-C | | | | | | [facility] | [address] | | | | | | [address] | [address] | | | | | | [facility]TH[facility] | [place], [place] | | | | | | [address] | [address] | | | | | | [address] | Phone: | | | | | | [place] | [phone] | | | | | | [address] | Fax: | | | | | | Phone: | [phone] | | | | | | [phone] | | | | | | | Fax: | | | | | | | [phone] | | +--------+--------+ + + + + Encounter Details +--------+---------+ + + + | Date | Type | Department | Care Team | Description | +--------+---------+ + + + | 08/20/ | Office | [facility] at | Bogdan Ordoñez, | Chronic pain | | 2017 | Visit | [facility] [address] | [place] [address] | syndrome (Primary | | | | [address] [place], [place] | [address] [place], [place] | Dx); Other | | | | [address] | [address] | idiopathic | | | | [phone] | [phone] | scoliosis, lumbar | | | | | | region; Myofascial | | | | | | pain; Arachnoid cyst | +--------+---------+ + + + Social History + +-------+ +--------+ + | Tobacco Use | Types | Packs/Day | Years | Date | | | | | Used | | + +-------+ +--------+ + | Former Smoker | | 0.5 | 10 | Quit: 08/20/1985 | + +-------+ +--------+ + + +---+---+---+ | Smokeless Tobacco: | | | | | Never Used | | | | + +---+---+---+ + + | Comments: quit 25 years ago | + + + + +---------+ + | Alcohol Use | Drinks/We | oz/Week | Comments | | | ek | | | + + +---------+ + | No | | | | + + +---------+ + + + + | Sex Assigned at | Date Recorded | | | | + + + | Not on file | | + + + as of this encounter Last Filed Vital Signs + + + + | Vital Sign | Reading | Time Taken | + + + + | Blood Pressure | - | - | + + + + | Pulse | - | - | + + + + | Temperature | - | - | + + + + | Respiratory Rate | - | - | + + + + | Oxygen Saturation | - | - | + + + + | Inhaled Oxygen | - | - | | Concentration | | | + + + + | Weight | 106.7 kg (235 lb 3.2 | 08/20/2017 1:44 PM PST | | | oz) | | + + + + | Height | 162.6 cm (5' 4") | 08/20/2017 1:44 PM PST | + + + + | Body Mass Index | 40.37 | 08/20/2017 1:44 PM PST | + + + + in this encounter Progress Notes Bogdan Ordoñez PA-C - 08/20/2017 1:50 PM PSTFormatting of this note may be different from the original. NEUROLOGICAL SURGERY SPINE CLINIC - HISTORY & PHYSICAL Chief Complaint: Chronic neck and low back pain History of Present Illness: Ms. Simmons is a 57 year old female with a history of uncontrolled DMII (reports last A1C above 9) with retinopathy and BLE polyneuropathy, CKD III, HTN, BMI 40, CHF, scoliosis and SD in 2009 with stent placement who presents for further evaluation of chronic low back and neck pain. She denies pain and stiffness worst in morning. Pain aggravated by all activities and she reports deconditioning due to inactivity from pain. Neck pain is intermittent is intermittent tight/achy "12"/10. Radiating pain down right pro ximal arm is intermittent since 2009 and she correlates this pain with CHF? Pain is overall 75% neck and 25% right arm. Denies BUE numbness, weakness, BUE/BLE coordination issues, and recent falls. Low back pain is intermittent muscular "12 or more"/10. Radiating pain down lateral thighs above knees si very mild and pain is overall 99% back and 1% legs. DMII neuropathy x 8 years has progressed to mid calf. Patient denies BLE specific muscle weakness, and loss of contro l of bowel/bladder The patient has tried: -Physical Therapy: for neck with some relief and performing minimal HEP -NSAIDs: limits due to kidney disease -Tylenol without relief -Narcotics: [place] minimal relief -Muscle relaxants: methocarbamol with moderate relief -Gabapentin: for DMII neuropathy with moderate relief The patient has not tried: -Cymbalta -Amitriptyline/Nortriptyline -Epidural steroid injections or medial branch blocks Review of Systems: All other systems were reviewed by me personally on a complete review of systems questionna hernando that will be scanned into [employer]. Current medication list: Current Outpatient Prescriptions Medication Sig allopurinol 100 mg oral tablet Take 100 mg by mouth once daily. aspirin chewable 81 mg oral tablet,chewable Chew and swallow 81 mg once daily. carvedilol 25 mg oral tablet Take 25 mg by mouth two times daily. furosemide 40 mg oral tablet Take 40 mg by mouth once daily. gabapentin 300 mg oral capsule 300 mg three times daily. HUMALOG KWIKPEN 100 unit/mL subcutaneous insulin pen three times daily before meals. Sl iding scale HYDROcodone-acetaminophen 5-325 mg oral tablet insulin degludec 200 unit/mL (3 mL) subcutaneous insulin pen Inject 78 Units under the skin (SUBC) once daily. losartan 50 mg oral tablet Take 50 mg by mouth once daily. metFORMIN 500 mg oral tablet Take 500 mg by mouth two times daily. methocarbamol 750 mg oral tablet Take 750 mg by mouth every six hours as needed. pravastatin 40 mg oral tablet Take 40 mg by mouth once daily at bedtime. VICTOZA 3-CHIDI 0.6 mg/0.1 mL (18 mg/3 mL) subcutaneous pen injector once daily. No current facility-administered medications for this visit. Allergies: Allergies Allergen Reactions Morphine Nausea and Vomiting Tetanus Antitoxin Nausea and Vomiting and Unknown Past surgical history: Past Surgical History Procedure Laterality Date Cardiac stent 2010 Cholecystectomy 2010 Appendectomy Tonsillectomy Knee surgery Left Past medical history: Past Medical History: Diagnosis Date CHF (congestive heart failure) (HCC) CKD (chronic kidney disease), stage III Diabetic retinopathy (HCC) DMII (diabetes mellitus, type 2) (HCC) GERD (gastroesophageal reflux disease) HTN (hypertension) SD (myocardial infarction) Social History: History Smoking Status Former Smoker Packs/day: 0.50 Years: 10.00 Quit date: 08/20/1985 Smokeless Tobacco Never Used Comment: quit 25 years ago History Alcohol Use No Family History: I asked and the patient's family history is non-contributory for presenting complaint and findings. Physical Exam: Vital Signs: Ht 1.626 m (5' 4") | Wt 106.7 kg (235 lb 3.2 oz) | BMI 40.37 kg/(m^2) General Appearance: No acute distress, well-groomed Orientation: Alert and oriented x 3 Eyes: anicteric sclerae, moist conjunctivae HENT: Normocephalic, Atraumatic Neck: Trachea midline; no visible thyromegaly Lungs: CTA, with normal respiratory effort CV: RRR, no audible MRGs Skin: Normal temperature, no visible rashes Psych: Appropriate and cooperative Musculoskeletal: MOTOR SCORE LEFT RIGHT C5 (Shoulder Abduct) 5 5 C6 (Elbow Flex) 5 5 C7 (Elbow Ext) 5 5 C8 (Wrist Ext) 5 5 T1 (Pinky Abd) 5 5 L2 (Hip Flex) 5 5 L3 (Knee Ext) 5 5 L4 (Dorsiflexion) 5 5 L5 (EHL) 5 5 S1 (Plantar Flex) 5 5 Gait: No ataxia with heel to toe Tone: Normal tone in upper and lower extremities. No rigidity, atrophy, or abnormal moveme nts. Able to stand on heels and toes bilaterally Neurological: Sensation grossly intact to light touch throughout and to pinpoint sensation throughout, ex cept dulled in stocking pattern to mid calf Hyporeflexic throughout PATHOLOGIC REFLEXES LEFT RIGHT Willett neg neg Babinkski neg neg Clonus neg neg Imaging: MRI reports taken from Dr. Mike's notes in [facility], Lumbar MRI in [facility] under first name Kathryn, C/T MRI in [facility] under Ashely "MRI of the cervical spine from 05/07/17 demonstrates spondylosis with mild foraminal stenos is C5-6 and C6-7. MRI of the thoracic spine from 05/07/17 demonstrates syrinx at the T2-3 levels. There is no other process identified. MRI of the lumbar spine from 07/14/17 demonstrates diffuse scoliosis and spondylosis" Assessment: Ms. Simmons is a 57 year old female with a history of uncontrolled DMII (reports last A1C above 9) with retinopathy and BLE polyneuropathy, CKD III, HTN, BMI 40, CHF, scoliosis and SD in 2009 with stent placement who presents for further evaluation of chronic musculoskelet al low back and neck pain. No significant cervical/lumbar stenosis on imaging. She does have a thoracic syrinx due to arachnoid cyst marked above but this does not explain her pain and she does not have signs or symptoms of myelopathy. Plan: -Reviewed with [facility] spine surgeon Dr. Lawson, no current surgical indication -Counseled on multifactorial nature of axial spine pain including myofascial and facetogeni c pain, which are not surgical indications -DMII control and weight loss are vital for comprehensive health and these would significan tly increase risk of surgical intervention if needed in the future. -Referral to Physical Therapy -Referral to Pain for further chronic pain recs and to consider right C5-6 KWASI vs MBB/RFA -Follow up as needed if radicular or myelopathic symptoms presents I spent at least 35 minutes hajq-of-bzxg with the patient. I spent more than 50% of this vi sit in coordination of care and counseling in which we discussed diagnosis, treatment, imagi ng studies and follow-up. Bogdan Ordoñez PA-C [facility] AT [address] [address] [facility] OPEN NOTE [[id number]] in this encounter Plan of Treatment Not on fileas of this encounter Visit Diagnoses + + | Diagnosis | + + | Chronic pain syndrome - Primary | + + | Other idiopathic scoliosis, lumbar region | + + | Myofascial pain | + + | Mylagia and myositis, unspecified | + + | Arachnoid cyst | + + | Cerebral cysts | + +
--- OUTSIDE RECORDS SUMMARY | 2017-08-28 08:46 | XMS | Clinical Summary ---
Demographics + + + | Address | [address] | | | [place] [address] | + + + | Home Phone | | + + + | Preferred Language | Unknown | + + + | Marital Status | | + + + | Temple Affiliation | BAP | + + + | Race | White | + + + | Ethnic Group | Not or | + + + Author + + + | Author | NON REVENUE LOCATIONS | + + + | Organization | NON REVENUE LOCATIONS | + + + | Address | Unknown | + + + | Phone | Unavailable | + + + Support +------+ + + + + | Name | Relationship | Address | Phone | +------+ + + + + ECON | [address] | | [place] [address] | +------+ + + + + Care Team Providers + +------+-------+ | Care Stave Jointer Name | Role | Phone | + +------+-------+ | Dilia Fine MD | PP | tel | + +------+-------+ Source Comments LORAINE is fully live on both [facility] and [facility] InPatient[facility] Allergies + + + + + + | Active Allergy | Reactions | Severity | Noted | Comments | | | | | Date | | + + + + + + | Morphine | Nausea and Vomiting | | 10/04/19 | | | | | | 17 | | + + + + + + | Tetanus Antitoxin | Nausea and Vomiting, | Low | 02/19/20 | | | | Unknown | | 17 | | + + + + + + Current Medications + + +-------+---------+------+------+-------+ | Prescription | Sig. | Disp. | Refills | Star | End | Statu | | | | | | t | Date | s | | | | | | Date | | | + + +-------+---------+------+------+-------+ | allopurinol 100 mg | Take 100 mg by mouth | | | 05/26 | | Activ | | oral tablet | once daily. | | | 05/14 | | e | | | | | | 17 | | | + + +-------+---------+------+------+-------+ | aspirin chewable | Chew and swallow 81 | | | 07/25 | | Activ | | 81 mg oral | mg once daily. | | | 05/14 | | e | | tablet,chewable | | | | 17 | | | + + +-------+---------+------+------+-------+ | carvedilol 25 mg | Take 25 mg by mouth | | | 12/1 | | Activ | | oral tablet | two times daily. | | | 20 | | e | | | | | | 17 | | | + + +-------+---------+------+------+-------+ | furosemide 40 mg | Take 40 mg by mouth | | | 10/1 | | Activ | | oral tablet | once daily. | | | 09/13 | | e | | | | | | 17 | | | + + +-------+---------+------+------+-------+ | gabapentin 300 mg | 300 mg three times | | | 12/ | | Activ | | oral capsule | daily. | | | 20 | | e | | | | | | 17 | | | + + +-------+---------+------+------+-------+ | | | | | 11/0 | | Activ | | HYDROcodone-acetamin | | | | 20 | | e | | ophen 5-325 mg oral | | | | 17 | | | | tablet | | | | | | | + + +-------+---------+------+------+-------+ | insulin degludec | Inject 78 Units | | | | | Activ | | 200 unit/mL (3 mL) | under the skin | | | | | e | | subcutaneous insulin | (SUBC) once daily. | | | | | | | pen | | | | | | | + + +-------+---------+------+------+-------+ | HUMALOG KWIKPEN | three times daily | | | 12/0 | | Activ | | 100 unit/mL | before meals. | | | 8/20 | | e | | subcutaneous insulin | Sliding scale | | | 17 | | | | pen | | | | | | | + + +-------+---------+------+------+-------+ | VICTOZA 3-CHIDI 0.6 | once daily. | | | 10/2 | | Activ | | mg/0.1 mL (18 mg/3 | | | | 9/20 | | e | | mL) subcutaneous pen | | | | 17 | | | | injector | | | | | | | + + +-------+---------+------+------+-------+ | losartan 50 mg | Take 50 mg by mouth | | | 06/2 | | Activ | | oral tablet | once daily. | | | 03/13 | | e | | | | | | 17 | | | + + +-------+---------+------+------+-------+ | metFORMIN 500 mg | Take 500 mg by mouth | | | | | Activ | | oral tablet | two times daily. | | | | | e | + + +-------+---------+------+------+-------+ | methocarbamol 750 | Take 750 mg by mouth | | | 12/ | | Activ | | mg oral tablet | every six hours as | | | 12/12 | | e | | | needed. | | | 17 | | | + + +-------+---------+------+------+-------+ | pravastatin 40 mg | Take 40 mg by mouth | | | | | Activ | | oral tablet | once daily at | | | | | e | | | bedtime. | | | | | | + + +-------+---------+------+------+-------+ Active Problems Not on file Encounters +--------+---------+ + + + | Date | Type | Specialty | Care Team | Description | +--------+---------+ + + + | 08/20/ | Office | | Bogdan Ordoñez, | Chronic pain | | 2017 | Visit | | PA-C | syndrome (Primary | | | | | | Dx); Other | | | | | | idiopathic | | | | | | scoliosis, lumbar | | | | | | region; Myofascial | | | | | | pain; Arachnoid cyst | +--------+---------+ + + + from Last 3 Months Social History + +-------+ +--------+ + | [...] on file | | + + + Last Filed Vital Signs + + + + | Vital Sign | Reading | Time Taken | + + + + | Blood Pressure | 105/68 | 12/27/2009 9:00 AM PDT | + + + + | Pulse | 75 | 12/27/2009 9:00 AM PDT | + + + + | Temperature | 36.4 C (97.5 F) | 12/27/2009 9:00 AM PDT | + + + + | Respiratory Rate | 16 | 12/27/2009 9:00 AM PDT | + + + + | Oxygen Saturation | 98% | 12/27/2009 9:00 AM PDT | + + + + | Inhaled [...] PM PST | + + + + Plan of Treatment + + + + + | Health Maintenance | Due Date | Last Done | Comments | + + + + + | INFLUENZA VACCINE | Completed | 07/08/2017, 06/02/2015, | | | (FLU SHOT) | | 06/17/2014, Additional history | | | | | exists | | + + + + + Results Not on filefrom Last 3 Months
== END 2017-08-28 09:47 | disposition home or self-care (01) ==
LOC: ED 08:01
PROC: 0S9D3ZZ Drainage of Left Knee Joint, Percutaneous Approach (ICD-10-PCS; principal; 2017-08-28)
DX: M10.062 Idiopathic gout, left knee (principal); I25.2 Old myocardial infarction; E11.40 Type 2 diabetes mellitus with diabetic neuropathy, unspecified; I11.0 Hypertensive heart disease with heart failure; I50.9 Heart failure, unspecified; Z90.49 Acquired absence of other specified parts of digestive tract; Z90.89 Acquired absence of other organs; Z95.5 Presence of coronary angioplasty implant and graft; Z88.5 Allergy status to narcotic agent; Z88.7 Allergy status to serum and vaccine; Z79.899 Other long term (current) drug therapy; Z79.4 Long term (current) use of insulin; Z79.82 Long term (current) use of aspirin
CPT/HCPCS: 20610; 99284; J3301

== ENCOUNTER 2017-10-21 13:23 | Emergency (ER) | payer OTHER ==
[~2017-10-21] VITALS: Ht 162.6 cm; Wt 106.8 kg
--- OUTSIDE RECORDS SUMMARY | ~2017-10-21 | XMS | Encounter Summary ---
Demographics + + + | Address | [address] | | | [place] [address] | + + + | Home Phone | | + + + | Preferred Language | Unknown | + + + | Marital Status | | + + + | Mormon Affiliation | BAP | + + + | Race | White | + + + | Ethnic Group | Not or | + + + Author + + + | Author | [facility] | + + + | Organization | [facility] | + + + | Address | Unknown | + + + | Phone | Unavailable | + + + Support + + + + + | Name | Relationship | Address | Phone | + + + + + | GENA HORNER | ECON | [address] | | | | | [place] [address] | | + + + + + Care Team Providers + +------+ + | Care Imager Name | Role | Phone | + +------+ + | Dilia Fine MD | PCP | | + +------+ + Reason for Referral Consultation (Routine) +--------+--------+ + + + + | Status | Reason | Specialty | Diagnoses / | Referred By | Referred To | | | | | Procedures | Contact | Contact | +--------+--------+ + + + + | Closed | | | Diagnoses | Smita, | | | | | | Chronic | Bogdan Epperson, | | | | | | pain | [address] | | | | | | syndrome | [address] | | | | | | Other | [place], | | | | | | idiopathic | [place] | | | | | | scoliosis, | [address] | | | | | | lumbar | Phone: | | | | | | region | [phone] | | | | | | Myofascial | Fax: | | | | | | pain | [phone] | | | | | | Procedures | | | | | | | CONSULT TO | | | | | | | PAIN | | | | | | | MANAGEMENT | | | +--------+--------+ + + + + Physical Therapy (Routine) +--------+--------+ + + + + | Status | Reason | Specialty | Diagnoses / | Referred By | Referred To | | | | | Procedures | Contact | Contact | +--------+--------+ + + + + | Closed | | Physical | Diagnoses | Smita, | | | | | Therapy | Chronic | Bogdan Epperson, | | | | | | pain | [address] | | | | | | syndrome | [address] | | | | | | Other | [place], | | | | | | idiopathic | [place] | | | | | | scoliosis, | [address] | | | | | | lumbar | Phone: | | | | | | region | [phone] | | | | | | Myofascial | Fax: | | | | | | pain | [phone] | | | | | | Procedures | | | | | | | PHYSICAL | | | | | | | THERAPY | | | | | | | REFERRAL | | | +--------+--------+ + + + + Reason for Visit [...] | Spine | Diagnoses | Sucharda, | Smita, | | | | | Cervicalgia | JOSE EDUARDO Gaytan | Bogdan Epperson PA-C | | | | | | [facility] | [address] | | | | | | [address] | [address] | | | | | | ORTHOPEDICS | [place], [place] | | | | | | [address] | [address] | | | | | | [address] | Phone: | | | | | | [place] | [phone] | | | | | | [address] | Fax: | | | | | | Phone: | [phone] | | | | | | [phone] | | | | | | | Fax: | | | | | | | [phone] | | +--------+--------+ + + + + Encounter Details +--------+---------+ + + + | Date | Type | Department | Care Team | Description | +--------+---------+ + + + | 08/20/ | Office | [facility] at | Bogdan Ordoñez, | Chronic pain | | 2017 | Visit | [facility] [address] | [address] | syndrome (Primary | | | | [address] [place], [place] | [address] [place], [place] | Dx); Other | | | | [address] | [address] | idiopathic | | | | [phone] | [phone] | scoliosis, lumbar | | | | [...] back pain History of Present Illness: Ms. Horner is a 57 year old female with a history of uncontrolled DMII (reports last A1C above 9) with retinopathy and BLE polyneuropathy, CKD III, HTN, BMI 40, CHF, scoliosis and NE in 2009 with stent placement who presents [...] to kidney disease -Tylenol without relief -Narcotics: [place] minimal relief -Muscle relaxants: methocarbamol with moderate relief -Gabapentin: for DMII neuropathy with moderate relief The patient has not tried: -Cymbalta -Amitriptyline/Nortriptyline -Epidural steroid injections or medial branch blocks Review of Systems: All other systems were reviewed by me personally on a complete review of systems questionna hernando that will be scanned into [employer]. Current medication list: Current Outpatient Prescriptions Medication [...] (HCC) GERD (gastroesophageal reflux disease) HTN (hypertension) NE (myocardial infarction) Social History: History Smoking Status [...] demonstrates diffuse scoliosis and spondylosis" Assessment: Ms. Horner is a 57 year old female with a history of uncontrolled DMII (reports last A1C above 9) with retinopathy and BLE polyneuropathy, CKD III, HTN, BMI 40, CHF, scoliosis and NE in 2009 with stent placement who presents for further evaluation of chronic musculoskelet al low back and neck pain. No significant cervical/lumbar stenosis on imaging. She does have a thoracic syrinx due to arachnoid cyst marked above but this does not explain her pain and she does not have signs or symptoms of myelopathy. Plan: -Reviewed with [facility] spine surgeon Dr. Lawson, no current surgical [...] presents I spent at least 35 minutes gkvz-[id number] with the patient. I spent more than 50% of this vi sit in coordination of care and counseling in which we discussed diagnosis, treatment, imagi ng studies and follow-up. Bogdan Ordoñez PA-C [facility] AT [address] [address] [facility] OPEN NOTE [[id number]] in this encounter Plan of Treatment Not [...]
--- OUTSIDE RECORDS SUMMARY | ~2017-10-21 | XMS | Clinical Summary ---
Demographics + + + | Address | [address] | | | [place] [address] | + + + | Home Phone | | + + + | Preferred Language | Unknown | + + + | Marital Status | | + + + | Christian Affiliation | BAP | + + + [...] | | | | | [place] [address] | | + + + + + Care Team Providers + +------+ + | Care Veterinary Technician Name | Role | Phone | + +------+ + | Dilia Fine MD | PP | | + +------+ + Source Comments [facility] is fully live [facility] Allergies + + + + + + [...] 100 mg by mouth | | | / | | Activ | | oral tablet [...] 25 mg by mouth | | | / | | Activ | | oral tablet | two times daily. | | | 05/14 | | e | | | | | | 17 | | | + + +-------+---------+------+------+-------+ | furosemide 40 mg | Take 40 mg by mouth | | | 05/25 | | Activ | | oral tablet | once daily. | | | 09/13 | | e | | | | | | 17 | | | + + +-------+---------+------+------+-------+ | gabapentin 300 mg | 300 mg three times | | | 07/25 | | Activ | | oral capsule | daily. | | | 05/14 | | e | | | | | | 17 | | | + + +-------+---------+------+------+-------+ | | | | | 11/0 | | Activ | | HYDROcodone-acetamin | | | | 6/20 | | e | | ophen 5-325 [...] unit/mL | before meals. | | | /20 | | e | | subcutaneous insulin [...] 50 mg by mouth | | | 01/24 | | Activ | | oral tablet [...] 750 mg by mouth | | | 07/25 | | Activ | | mg oral [...]
--- OUTSIDE RECORDS SUMMARY | ~2017-10-21 | XMS | Encounter Summary ---
Demographics + + + | Address | [address] | | | [place] [address] | + + + | Home Phone | | + + + | Preferred Language | Unknown | + + + | Marital Status | | + + + | Mosque Affiliation | BAP | + + + | Race | White | + + + | Ethnic Group | Not or | + + + Author + + + | Author | [facility] | + + + | Organization | [facility] | + + + | Address | Unknown | + + + | Phone | Unavailable | + + + Support + + + + + | Name | Relationship | Address | Phone | + + + + + | GENA HORNER | ECON | [address] | | | | | [place] [address] | | + + + + + Care Team Providers + +------+ + | Care Crane Hooker Name | Role | Phone | + [...] | | | | pain | [address] | | | | | | syndrome | [address] | | | | | | Other | [place], | | | | | | idiopathic | [place] | | | | | | scoliosis, | [address] | | | | | | lumbar | Phone: | | | | | | region | [phone] | | | | | | Myofascial | Fax: | | | | | | pain | [phone] | | | | | | Procedures [...] | | | | pain | [address] | | | | | | syndrome | [address] | | | | | | Other | [place], | | | | | | idiopathic | [place] | | | | | | scoliosis, | [address] | | | | | | lumbar | Phone: | | | | | | region | [phone] | | | | | | Myofascial | Fax: | | | | | | pain | [phone] | | | | | | Procedures [...] | | | | [facility] | [address] | | | | | | [address] | [address] | | | | | | ORTHOPEDICS | [place], [place] | | | | | | [address] | [address] | | | | | | [address] | Phone: | | | | | | [place] | [phone] | | | | | | [address] | Fax: | | | | | | Phone: | [phone] | | | | | | [phone] | | | | | | | Fax: | | | | | | | [phone] | | +--------+--------+ + + + + Encounter Details +--------+---------+ + + + | Date | Type | Department | Care Team | Description | +--------+---------+ + + + | 08/20/ | Office | Spine Center at | Bogdan Ordoñez, | Chronic pain | | 2017 | Visit | [facility] [address] | [address] | syndrome (Primary | | | | [address] [place], [place] | [address] [place], [place] | Dx); Other | | | | [address] | [address] | idiopathic | | | | [phone] | [phone] | scoliosis, lumbar | | | | [...] III, HTN, BMI 40, CHF, scoliosis and DC in 2009 with stent placement who presents [...] to kidney disease -Tylenol without relief -Narcotics: [place] minimal relief -Muscle relaxants: methocarbamol with moderate relief -Gabapentin: for DMII neuropathy with moderate relief The patient has not tried: -Cymbalta -Amitriptyline/Nortriptyline -Epidural steroid injections or medial branch blocks Review of Systems: All other systems were reviewed by me personally on a complete review of systems questionna hernando that will be scanned into [employer]. Current medication list: Current Outpatient Prescriptions Medication [...] (HCC) GERD (gastroesophageal reflux disease) HTN (hypertension) DC (myocardial infarction) Social History: History Smoking Status [...] III, HTN, BMI 40, CHF, scoliosis and DC in 2009 with stent placement who presents for further evaluation of chronic musculoskelet al low back and neck pain. No significant cervical/lumbar stenosis on imaging. She does have a thoracic syrinx due to arachnoid cyst marked above but this does not explain her pain and she does not have signs or symptoms of myelopathy. Plan: -Reviewed with [facility] spine surgeon Dr. Lawson, no current surgical [...] presents I spent at least 35 minutes [id number]-kt-[id number] with the patient. I spent more than 50% of this vi sit in coordination of care and counseling in which we discussed diagnosis, treatment, imagi ng studies and follow-up. Bogdan Ordoñez PA-C SP[facility] AT [address] [address] [facility] OPEN NOTE [[id number]] in this encounter Plan of Treatment Not [...]
--- OUTSIDE RECORDS SUMMARY | ~2017-10-21 | XMS | Clinical Summary ---
Demographics + + + | Address | [address] | | | [place] [address] | + + + | Home Phone | | + + + | Preferred Language | Unknown | + + + | Marital Status | | + + + | Catholic Affiliation | BAP | + + + [...] | | | | | [place] [address] | | + + + + + Care Team Providers + +------+ + | Care Oil Driller Name | Role | Phone | + +------+ + | Dilia Fine MD | PP | | + +------+ + Source Comments LORAINE is fully live on both [facility] and [facility] Allergies + + + + + [...]
[~2017-10-21 13:23] MED LIST changes: +ROBAXIN-750750 MG PO
[2017-10-21] MEDS ORDERED: ANUSOL-HC25 MG PR (14:09)
== END 2017-10-21 14:40 | disposition home or self-care (01) ==
LOC: ED 13:23
DX: K64.4 Residual hemorrhoidal skin tags (principal); D53.9 Nutritional anemia, unspecified; E11.40 Type 2 diabetes mellitus with diabetic neuropathy, unspecified; I25.2 Old myocardial infarction; I10 Essential (primary) hypertension; Z88.8 Allergy status to other drugs, medicaments and biological substances; Z88.5 Allergy status to narcotic agent; Z88.7 Allergy status to serum and vaccine; Z79.4 Long term (current) use of insulin; Z79.899 Other long term (current) drug therapy; Z79.82 Long term (current) use of aspirin
CPT/HCPCS: 36415; 85025; 99283

== ENCOUNTER 2017-11-22 11:38 | Emergency (ER) | payer OTHER ==
[~2017-11-22] VITALS: Ht 162.6 cm; Wt 106.8 kg
--- OUTSIDE RECORDS SUMMARY | ~2017-11-22 | XMS | Clinical Summary ---
Demographics + + + | Address | [address] | | | [place] [address] | + + + | Home Phone | | + + + | Preferred Language | Unknown | + + + | Marital Status | | + + + | [employer] Affiliation | BAP | + + + [...] | | | | | [place] [address] | | + + + + + Care Team Providers + +------+ + | Care Day Care Aide Name | Role | Phone | + +------+ + | Dilia Fine MD | PP | | + +------+ + Source Comments L[facility]INE is fully live on both [facility] and [facility] Allergies + + + + [...] + +-------+---------+------+------+-------+ Active Problems Not on file Social History + +-------+ +--------+ + | [...]
[~2017-11-22 11:38] MED LIST changes: +ANUSOL-HC25 MG PR
[2017-11-22] MEDS ORDERED: ULTRAM50 MG PO (12:17)
== END 2017-11-22 12:44 | disposition home or self-care (01) ==
LOC: ED 11:38
DX: M10.9 Gout, unspecified (principal); E11.9 Type 2 diabetes mellitus without complications; I11.0 Hypertensive heart disease with heart failure; I50.9 Heart failure, unspecified; I25.2 Old myocardial infarction; Z88.8 Allergy status to other drugs, medicaments and biological substances; Z88.5 Allergy status to narcotic agent; Z79.899 Other long term (current) drug therapy; Z79.84 Long term (current) use of oral hypoglycemic drugs; Z79.4 Long term (current) use of insulin; Z79.82 Long term (current) use of aspirin
CPT/HCPCS: 99283

== ENCOUNTER → 2019-10-19 | Emergency (ER) | payer MEDICARE, OTHER ==
[~2019-10-19] VITALS: Ht 162.6 cm; Wt 106.8 kg
[~2019-10-19] MED LIST changes: +TUMERIC PO; +ULTRAM50 MG PO; +[UNRECOGNIZED DRUG - OTHER] PO
--- NOTE | 2019-10-19 06:55 | EKG ---
[facility] [address] [place] [address] Signed Normal sinus rhythm Right bundle branch block Left anterior fascicular block Bifascicular block Septal infarct (cited on or before 22-NOV-2016) Abnormal ECG When compared with ECG of 22-NOV-2016 12:58, Questionable change in initial forces of Septal leads Inverted T waves have replaced nonspecific T wave abnormality in Lateral leads Confirmed by JEANIE TEMPLE MD ([id number]) on 10/19/2019 6:55:20 AM Electronically Signed By: JEANIE TEMPLE MD 10/19/19 0655 PATIENT NAME: Sunny HORNER Electrocardiogram DATE OF : 56 PHYSICIAN: JEANIE TEMPLE MD REPORT #: [id number] REPORT IS CONFIDENTIAL AND NOT TO BE RELEASED WITHOUT AUTHORIZATION
== END ==
LOC: ED 03:17
DX: I21.4 Non-ST elevation (NSTEMI) myocardial infarction (principal); J98.8 Other specified respiratory disorders; I11.0 Hypertensive heart disease with heart failure; I50.9 Heart failure, unspecified; E11.40 Type 2 diabetes mellitus with diabetic neuropathy, unspecified; I25.2 Old myocardial infarction; Z87.891 Personal history of nicotine dependence; Z79.899 Other long term (current) drug therapy
CPT/HCPCS: 71045; 80053; 83735; 84484; 85025; 87502; 93005; 93010; 99285-25; J7030